=== PATIENT | female | born 1965 | race Caucasian/White ===

== ENCOUNTER → 2017-01-25 | Outpatient (CLI) | payer BC ==
[~2017-01-25] MED LIST: AMBIEN 10MG10 MG PO; AMBIEN10 MG PO; ASPIRIN 32325 MG/TAB PO; ASPIRIN E.C.325 MG PO; BIOTIN1000 MCG PO; BYETTA 5MC300 MCG/SY SC; CALCI-CHEW500 MG PO; CALCIUM1 CAP PO; CARDI-OMEGA1000 MG PO; CHEW-IRON27 MG PO; CIPRO 500MG TA500 MG PO; EPA FISH OIL1000 MG PO; FISH OIL CONC1000 MG PO; FISH OIL CONCEN1 SGL PO; FLAGYL500 MG PO; FLEXERIL10 MG PO; GLUCOPHAGE1000 MG PO; IMDUR 30MG30 MG/TAB PO; IMDUR30 MG PO; INSULIN NOVO100 U/ML IJ; LEVEMIR100 U/ML SC; LIPITOR 10MG10 MG PO; LIPITOR 80MG80 MG PO; LIPITOR20 MG PO; LISINOPRIL/HYDR1 TAB PO; LISINOPRIL5 MG PO; LOPRESSOR 550 MG/TAB PO; LORTAB 7.5/5001 TAB PO; METOPROLOL50 MG PO; MULTIPLE VITAMI1 CAP PO; MULTIPLE VITAMI1 TA7 PO; MULTIPLE VITAMI1 TAB PO; NIACIN PO; NIACIN500 M2 PO; NIASPAN1000 MG PO; NICARDIPINE HCL20 MG PO; NITROQUICK0.4 MG SL; NITROSTAT0.4 MG/TAB SL; NO HOME MEDICATIONS; NORCO 325 MG-51 TAB PO; NORCO 325 MG-7.1 TAB PO; NOVOLOG 100U100 U/M1 SC; NOVOLOG FLEX100 U/ML SC; NOVOLOG100 U/ML SC; PHENERGAN 25 TA25 MG PO; PHENERGAN25 MG RC; PLAVIX 75MG TAB75 MG PO; PREMARIN 0.60.625 M1 PO; PRINZIDE 12.5 M1 TAB PO; PROCARDIA20 MG PO; PROMETHAZINE12.5 M5 PO; RANEXA 500MG T500 MG PO; REQUIP 0.5MG0.5 MG PO; TOPIRAMATE; TOPROL XL 25MG25 MG PO; VICTOZA SQ; VICTOZA6 MG/ML SC; VITA #121000 MCG/M IM; VITAMIN B12500 MCG PO; WELLBUTRIN PO; ZOCOR80 MG PO
== END ==
LOC: MC.RAD 07:31
DX: Z12.31 Encounter for screening mammogram for malignant neoplasm of breast (principal)

== ENCOUNTER → 2020-07-09 | Outpatient (CLI) | payer BC, OTHER | LOC: ZCOL.LAB 16:34 | DX: J34.89 Other specified disorders of nose and nasal sinuses (principal); Z20.828 Contact with and (suspected) exposure to other viral communicable diseases ==

== ENCOUNTER 2021-06-11 08:56 | Inpatient (IN) | payer BC ==
[~2021-06-11] VITALS: Ht 165.2 cm; Wt 75.7 kg
[2021-06-19] VITALS (8 sets, daily range): BP systolic 114–181; BP diastolic 48–68; PULSE 56–79; TEMP 97.6–98.5
[2021-06-19] MEDS ORDERED: LEXAPRO20 MG PO (10:18)
[2021-06-19] MEDS ORDERED: WELLBUTRIN XL300 M1 PO (10:19)
[2021-06-19] MEDS ORDERED: GLUCOPHAGE1000 MG PO (10:22)
[2021-06-19] MEDS ORDERED: FOLIC ACID0.4 MG PO (10:23)
[2021-06-19] MEDS ORDERED: VITAMIN C500 MG PO (10:25)
[2021-06-19] MEDS ORDERED: IRON TABLETS325 MG PO (10:25)
[2021-06-19] MEDS ORDERED: DESYREL 100MG100 MG PO (10:26)
--- NOTE | 2021-06-19 13:45 | NUR ---
PATIENT ADMITED INTO ROOM 332 POST OP RTK. A&O. VSS. DENIES PAIN. PATIENT IS UNABLE TO MOVE BLE. RIGHT KNEE DRESSING IS CD&I WITH ACEWRAP. TEDS TO LLE. SCD'S TO BLE. POSITIVE PEDAL PULES TO BLE. NO C/O N/V. IV FLUIDS INFUSING INTO LEFT WRIST IV. HEAD TO TOE ASSESSMENT COMPLETE, SEE CHARTING. BS IN PACU WAS 101. NO OTHER NEEDS AT THIS TIME. CALL LIGHT IN REACH.
--- NOTE | 2021-06-19 18:00 | NUR ---
PATIENT HAS BEEN UP TO THE BATHROOM TWICE AND WAS ABLE TO VOID. PATIENT C/O SEVERE PAIN IN RLE AFTER GETTING BACK INTO BED. GAVE PRN MORPHINE IV. ELEVATED RLE AND APPLIED ICE PACK. PATIENT POSITIONED TO COMFORT. CALL LIGHT IN REACH.
--- NOTE | 2021-06-19 20:00 | NUR ---
Pt. sitting up in bed. Pt. is A&OX3, assessment complete. INT to lt. wrist patent. Pt. reports pain at an 8 on pain scale, giving pain meds per orders. Dressing to Rt. Knee CDI. Pt. denies further needs, call light within reach.
[2021-06-20] MEDS ORDERED: XARELTO10 MG PO (07:10)
[2021-06-20] MEDS ORDERED: ROXICODONE 55 MG/TAB PO (07:11)
[2021-06-20] MEDS ORDERED: NORCO 325 MG-7.1 TAB PO (07:43)
--- NOTE | 2021-06-20 08:00 | NUR ---
PATIENT IS A&O. VSS. RATES PAIN IN RLE AT 7/10. GAVE PRN NORCO, TWO TABS WITH AM MEDS. RTK DRESSING IS CD&I WITH ACEWRAP. STUDENT NURSE WORKING WITH PATIENT TODAY AND WILL CHANGE DRESSING TO AQUACEL. TEDS TO LLE. SCD'S CURRENTLY OFF. POSITIVE PEDAL PULSES TO BLE. PATIENT EAT/DRINK/VOIDING SUFFIENT AMOUNTS. NO C/O N/V. LEFT WRIST IV TO INT. HEAD TO TOE ASSESSMENT COMPLETE. NO OTHER NEEDS. CALL LIGHT IN REACH. PATIENT HOPING TO DISCHARGE HOME LATER TODAY.
[2021-06-20 08:13] VITALS: BP 156/59; PULSE 60; TEMP 99
--- NOTE | 2021-06-20 08:23 | NUR ---
Initial visit; Patient thanked Care Attendant for looking in on her and offering God's blessings.
--- NOTE | 2021-06-20 08:29 | NUR ---
patient resting in bed at this time, pain 8/10, 2 norco given. patient dressing intact, no drainage at this time.
--- NOTE | 2021-06-20 09:51 | NUR ---
pt. dressing from KHANG wrap to Aquacel, pt. has pain rate 4/10, elevated and ICE applied. patient incision has min. drainage, 15.5cm in size. swelling noted to right knee. patient resting in bed at this time with call light within reach.
--- NOTE | 2021-06-20 11:11 | NUR ---
pt IV DC'd, cath intact, no c/o pain. patient resting in bed with beside bedside
--- NOTE | 2021-06-20 11:20 | NUR ---
PATIENT DISCHARGING HOME VIA WC TO PERSONAL VEHICLE WITH . GAVE DISCHARGE INSTRUCTIONS, E-SCRIPTS SENT, AQUACEL DRESSING, AND DISCUSSED F/U APT. STUDENT NURSE DC'D IV SITE, SEE CHARTING. PATIENT IS DRESSED, PACKED AND DISCHARGED.
--- NOTE | 2021-06-20 11:20 | NUR ---
ROBSON met with the patient and her , Suhas (ph#[phone]), to discuss discharge plan. The patient lives in [place] with her . She reports independence with ADLs and has a walker. The patient's PCP is Dr. Jovan Perez and she receives her medications from [facility]. She reports no difficulties obtaining her meds. The patient does not have a DPOA-HC in EMR, but she states that she does have one completed and that it designates her . The patient plans to return home with her and receive outpatient PT at [facility] upon discharge. No additional needs at this time. *Discharge plan: home with and outpatient PT*
== END 2021-06-20 11:20 | disposition home or self-care (01) | DRG 470 ==
LOC: SURG 06-19 07:30 → INPTSU 06-19 08:49 → SURG 06-19 09:30
PROVIDERS: ADMIT Orthopaedic Surgery
PROC: 0SRC0J9 Replacement of Right Knee Joint with Synthetic Substitute, Cemented, Open Approach (ICD-10-PCS; principal; 2021-06-19 11:30)
DX: M17.11 Unilateral primary osteoarthritis, right knee (principal); I50.9 Heart failure, unspecified; I11.0 Hypertensive heart disease with heart failure; E11.9 Type 2 diabetes mellitus without complications; I25.10 Atherosclerotic heart disease of native coronary artery without angina pectoris; K21.9 Gastro-esophageal reflux disease without esophagitis; D64.9 Anemia, unspecified; F41.9 Anxiety disorder, unspecified; Z20.822 Contact with and (suspected) exposure to COVID-19; F32.9 Major depressive disorder, single episode, unspecified; E78.5 Hyperlipidemia, unspecified; K59.00 Constipation, unspecified; Z79.891 Long term (current) use of opiate analgesic; Z79.4 Long term (current) use of insulin; Z96.652 Presence of left artificial knee joint; Z88.8 Allergy status to other drugs, medicaments and biological substances
CPT/HCPCS: C1713; C1776; J0690; J2250; J2270; J2704; J2795; J3010; J7030